=== PATIENT | male | born 1970 | race Caucasian/White ===

== ENCOUNTER 2016-12-07 15:43 | Inpatient (IN) | payer OTHER ==
[~2016-12-07] VITALS: Ht 180.3 cm; Wt 96.4 kg
[2016-12-07] MEDS ORDERED: ENOXAPARIN SODIUM 60 MG/0.6 ML PF SYRINGE SQ ONE (15:45)
[2016-12-07 15:56] LABS: ABG A-A DIFF O2 594.7 mmHg (10-20.0); ABG BASE EXCESS 1.6 mmol/L (-2.0-3.0); ABG HCO3 25.9 mmol/L (22.0-26.0); ABG OXYHEMOGLOBIN 94.1 % (94.0-100.0); ABG PCO2 40 mmHg (35-45); ABG PH 7.434 (7.35-7.450); TEMPERATURE, FAHRENHEIT, BG 99.9 FAHREN (96.0-98.6)
[2016-12-07 15:57] LABS: ALLEN TEST, BLOOD GAS Positive
[2016-12-07] MEDS ORDERED: ENOXAPARIN SODIUM 80 MG/0.8 ML PF SYRINGE SQ ONE (16:00)
[2016-12-07 16:03] LABS: BASOPHILS # (AUTO) 0.09 K/uL (0.00-0.20); BASOPHILS % (AUTO) 0.7 % (0.0-2.0); EOSINOPHILS # (AUTO) 0.67 K/uL (0.00-0.70); EOSINOPHILS % (AUTO) 5.48 % (1.0-6.0); HEMATOCRIT 43.4 % (41-53); HEMOGLOBIN 14.2 g/dL (13.5-17.5); LYMPHOCYTES # (AUTO) 2.7 K/uL (1.0-4.8); LYMPHOCYTES % (AUTO) 22.5 % (22.0-44.0); MEAN CORPUSCULAR HEMOGLOBIN 29.5 pg (26.0-34.0); MEAN CORPUSCULAR HGB CONC 32.7 G/dL (31.0-37.0); MEAN CORPUSCULAR VOLUME 90 fL (80-100); MONOCYTES # (AUTO) 0.9 K/uL (0.1-1.0); NEUTROPHILS # (AUTO) 7.8 K/uL (1.8-7.7); NEUTROPHILS % (AUTO) 64.3 % (40.0-70.0); PLATELET COUNT (AUTO) 593 K/uL (150-450); RED BLOOD CELL COUNT(AUTO) 4.82 MIL/uL (4.50-5.90); RED CELL DISTRIBUTION WIDTH 13.3 % (11.5-14.5); WHITE BLOOD COUNT (AUTO) 12.2 K/uL (4.5-11.0)
[2016-12-07] MEDS ORDERED: MORP15T PO (16:23)
[2016-12-07] MEDS ORDERED: SIMV-260 PO (16:23)
[2016-12-07] MEDS ORDERED: ONDANSETRON HCL 4 MG/2 ML VIAL IVP ONE (16:30)
[2016-12-07] MEDS ORDERED: HYDROmorphone 2 MG/ML SYRINGE IVP ONE (16:30)
[2016-12-07] MEDS ORDERED: IOVERSOL 350 MG/ML 100 ML VIAL ONE (16:33)
[2016-12-07] MEDS ORDERED: SODIUM CHLORIDE 0.9% 100 ML ONE (16:33)
[2016-12-07] MEDS ORDERED: IOVERSOL 350 MG/ML 50 ML VIAL ONE (16:33)
[2016-12-07 17:15] LABS: ANION GAP 10 mmol/L (8-16); CALCIUM, TOTAL 9.3 mg/dL (8.8-10.5); CARBON DIOXIDE 29 mmol/L (22-29); CHLORIDE 102 mmol/L (98-107); CREATININE 1.04 mg/dL (0.60-1.30); GLOMERULAR FILTR. RATE CALC > 60 mL/min (>60); POTASSIUM 4.3 mmol/L (3.5-5.1); SODIUM SERUM 141 mmol/L (136-145); UREA NITROGEN, BLOOD 17 mg/dL (7-18)
[2016-12-07 17:21] LABS: ALANINE AMINOTRANSFERASE 55 U/L (12-78); ALBUMIN 3.4 g/dL (3.4-5.0); ASPARTATE AMINOTRANSFERASE 26 U/L (15-37); CREATINE KINASE, TOTAL 64 U/L (39-308)
[2016-12-07] MEDS ORDERED: LORazepam 2 MG/ML VIAL ONE (17:33)
[2016-12-07 17:35] LABS: BILIRUBIN,TOTAL < 0.1 mg/dL (0.1-1.0)
[2016-12-07] MEDS ORDERED: LORazepam 2 MG/ML VIAL IVP ONE (17:45)
[2016-12-07] MEDS ORDERED: PIPERACILLIN/TAZO 3.375 GM/D5W 50 ML IV ONE (18:45)
[2016-12-07] MEDS ORDERED: 0.9% SODIUM CHLORIDE 10 ML SYRINGE IVP PRN (19:30)
[2016-12-07] MEDS ORDERED: ACETAMINOPHEN 325 MG TABLET PO PRN (19:30)
[2016-12-07] MEDS ORDERED: ONDANSETRON HCL 4 MG/2 ML VIAL IVP PRN (19:30)
[2016-12-07] MEDS ORDERED: HEPARIN SODIUM,PORCINE 5,000 UNITS/ML VIAL IVP PRN ×2 (21:15)
[2016-12-07] MEDS ORDERED: MORPHINE SULFATE 4 MG/ML SYRINGE IVP PRN (21:15)
[2016-12-07] MEDS ORDERED: HEPARIN SODIUM,PORCINE 5,000 UNITS/ML VIAL IVP ONE (21:15)
[2016-12-07 21:25] VITALS: BP 152/98
[2016-12-07] MEDS: HEPARIN SODIUM 25000 UNITS/D5W 250 ML IV PRN (21:43)
[2016-12-07 21:45] VITALS: BP 138/82
[2016-12-07 22:58] LABS: ORIG DRAW (USER) PTCARESTAF
[2016-12-08] VITALS (21 sets, daily range): BP systolic 105–150; BP diastolic 58–89
[2016-12-08] MEDS ORDERED: MAGNESIUM HYDROXIDE SUSPENSION 30 ML UDCUP PO PRN (00:15)
[2016-12-08] MEDS ORDERED: OxyCODONE HCL/ACETAMINOPHEN 5-325 MG TABLET PO PRN (00:15)
[2016-12-08] MEDS ORDERED: MORPHINE SULFATE 2 MG/ML SYRINGE IVP PRN (00:15)
[2016-12-08] MEDS ORDERED: MORPHINE SULFATE 15 MG IR TABLET PO PRN (00:15)
[2016-12-08] MEDS ORDERED: ONDANSETRON HCL 4 MG/2 ML VIAL IVP PRN (00:15)
[2016-12-08] MEDS ORDERED: 0.9% SODIUM CHLORIDE 10 ML SYRINGE IVP PRN (00:15)
[2016-12-08] MEDS: DOCUSATE SODIUM 100 MG CAPSULE PO SCH ×3 (00:35→20:58)
[2016-12-08] MEDS: OxyCODONE HCL/ACETAMINOPHEN 5-325 MG TABLET PO PRN ×4 (00:35→20:59)
[2016-12-08] MEDS: MORPHINE SULFATE 4 MG/ML SYRINGE IVP PRN ×5 (01:30→22:19)
[2016-12-08 05:25] LABS: BASOPHILS # (AUTO) 0.05 K/uL (0.00-0.20); BASOPHILS % (AUTO) 0.2 % (0.0-2.0); EOSINOPHILS # (AUTO) 0.01 K/uL (0.00-0.70); EOSINOPHILS % (AUTO) 0.04 % (1.0-6.0); HEMATOCRIT 42.3 % (41-53); HEMOGLOBIN 13.9 g/dL (13.5-17.5); LYMPHOCYTES # (AUTO) 0.9 K/uL (1.0-4.8); LYMPHOCYTES % (AUTO) 3.9 % (22.0-44.0); MEAN CORPUSCULAR HEMOGLOBIN 29.6 pg (26.0-34.0); MEAN CORPUSCULAR HGB CONC 32.9 G/dL (31.0-37.0); MEAN CORPUSCULAR VOLUME 90 fL (80-100); MONOCYTES # (AUTO) 1.2 K/uL (0.1-1.0); MONOCYTES % (AUTO) 5.4 % (2.0-9.0); PLATELET COUNT (AUTO) 533 K/uL (150-450); RED CELL DISTRIBUTION WIDTH 13.4 % (11.5-14.5); WHITE BLOOD COUNT (AUTO) 22.1 K/uL (4.5-11.0)
[2016-12-08 05:30] LABS: NEUTROPHILS % (AUTO) 90.4 % (40.0-70.0)
[2016-12-08 05:48] LABS: ALANINE AMINOTRANSFERASE 56 U/L (12-78); ALBUMIN 3.1 g/dL (3.4-5.0); ANION GAP 10 mmol/L (8-16); ASPARTATE AMINOTRANSFERASE 29 U/L (15-37); BILIRUBIN,TOTAL 0.4 mg/dL (0.1-1.0); CALCIUM, TOTAL 9.1 mg/dL (8.8-10.5); CARBON DIOXIDE 26 mmol/L (22-29); CHLORIDE 99 mmol/L (98-107); GLOMERULAR FILTR. RATE CALC > 60 mL/min (>60); POTASSIUM 4.3 mmol/L (3.5-5.1); SODIUM SERUM 135 mmol/L (136-145); TOTAL PROTEIN, SERUM 7.6 g/dL (6.4-8.2); UREA NITROGEN, BLOOD 15 mg/dL (7-18)
[2016-12-08] MEDS: PANTOPRAZOLE SODIUM 40 MG/VIAL IVP SCH (09:33)
[2016-12-08] MEDS: SIMVASTATIN 20 MG TABLET PO SCH (09:33)
[2016-12-08] MEDS: LEVOFLOXACIN 500 MG/D5% WATER 100 ML IV SCH (12:10)
[2016-12-08] MEDS: HEPARIN SODIUM 25000 UNITS/D5W 250 ML IV PRN (13:35)
[2016-12-08] MEDS ORDERED: SODIUM CHLORIDE 0.9% 250 ML IV ONE (14:24)
[2016-12-08] MEDS ORDERED: HYDROmorphone 2 MG/ML SYRINGE ONE (17:34)
[2016-12-08] MEDS ORDERED: HYDROmorphone 2 MG/ML SYRINGE IVP ONE (17:45)
[2016-12-08 21:14] LABS: CREATINE KINASE, TOTAL 27 U/L (39-308)
[2016-12-08 21:57] LABS: APPEARANCE,UNSPUN,BODY FLUID CLOUDY (CLEAR)
[2016-12-08 21:58] LABS: COLOR,BODY FLUID RED (LT YELLOW); OTHER CELLS,BODY FLUID 0; PH, BODY FLUID 8
[2016-12-09] VITALS (10 sets, daily range): BP systolic 108–124; BP diastolic 66–77
[2016-12-09] MEDS: MORPHINE SULFATE 4 MG/ML SYRINGE IVP PRN ×4 (04:27→20:46)
[2016-12-09] MEDS: HEPARIN SODIUM 25000 UNITS/D5W 250 ML IV PRN (04:51)
[2016-12-09 05:27] LABS: BASOPHILS % (AUTO) 0.3 % (0.0-2.0); EOSINOPHILS % (AUTO) 1.4 % (1.0-6.0); HEMATOCRIT 39.2 % (41-53); HEMOGLOBIN 12.7 g/dL (13.5-17.5); LYMPHOCYTES # (AUTO) 0.9 K/uL (1.0-4.8); LYMPHOCYTES % (AUTO) 4.6 % (22.0-44.0); MEAN CORPUSCULAR HEMOGLOBIN 29.3 pg (26.0-34.0); MEAN CORPUSCULAR HGB CONC 32.4 G/dL (31.0-37.0); MEAN CORPUSCULAR VOLUME 90 fL (80-100); MONOCYTES # (AUTO) 1.3 K/uL (0.1-1.0); MONOCYTES % (AUTO) 6.8 % (2.0-9.0); NEUTROPHILS # (AUTO) 16.2 K/uL (1.8-7.7); PLATELET COUNT (AUTO) 474 K/uL (150-450); RED BLOOD CELL COUNT(AUTO) 4.34 MIL/uL (4.50-5.90); RED CELL DISTRIBUTION WIDTH 12.9 % (11.5-14.5); WHITE BLOOD COUNT (AUTO) 18.7 K/uL (4.5-11.0)
[2016-12-09 05:31] LABS: NEUTROPHILS % (AUTO) 86.9 % (40.0-70.0)
[2016-12-09 05:49] LABS: ANION GAP 10 mmol/L (8-16); CARBON DIOXIDE 27 mmol/L (22-29); CHLORIDE 100 mmol/L (98-107); POTASSIUM 3.8 mmol/L (3.5-5.1); SODIUM SERUM 137 mmol/L (136-145)
[2016-12-09 05:50] LABS: CALCIUM, TOTAL 8.9 mg/dL (8.8-10.5); CREATINE KINASE, TOTAL 17 U/L (39-308); CREATININE 0.88 mg/dL (0.60-1.30); GLOMERULAR FILTR. RATE CALC > 60 mL/min (>60); PHOSPHORUS 2.6 mg/dL (2.5-4.9); THYROID STIMULATING HORMONE 0.21 uIU/mL (0.36-3.74); UREA NITROGEN, BLOOD 15 mg/dL (7-18)
[2016-12-09 07:05] LABS: B-TYPE NATRIURETIC PEPTIDE 5 pg/mL (0-100)
[2016-12-09] MEDS: DOCUSATE SODIUM 100 MG CAPSULE PO SCH ×2 (08:05→20:33)
[2016-12-09] MEDS: SIMVASTATIN 20 MG TABLET PO SCH (08:05)
[2016-12-09] MEDS: PANTOPRAZOLE SODIUM 40 MG/VIAL IVP SCH (08:05)
[2016-12-09] MEDS: OxyCODONE HCL/ACETAMINOPHEN 5-325 MG TABLET PO PRN ×2 (08:05→12:38)
[2016-12-09 09:39] LABS: ABG A-A DIFF O2 258.6 mmHg (10-20.0); ABG BASE EXCESS -1.6 mmol/L (-2.0-3.0); ABG HCO3 23.8 mmol/L (22.0-26.0); ABG OXYHEMOGLOBIN 94.7 % (94.0-100.0); ABG PCO2 33 mmHg (35-45); ABG PH 7.451 (7.35-7.450)
[2016-12-09 09:40] LABS: ALLEN TEST, BLOOD GAS POSITIVE
[2016-12-09] MEDS: LEVOFLOXACIN 500 MG/D5% WATER 100 ML IV SCH (11:00)
[2016-12-09] MEDS: APIXABAN 5 MG TABLET PO SCH ×2 (11:40→20:33)
[2016-12-09 12:49] LABS: CREATINE KINASE, TOTAL 17 U/L (39-308)
[2016-12-09 17:40] LABS: TOTAL PROTEIN,BODY FLUID,REF 5.6 g/dL
[2016-12-10] MEDS: MORPHINE SULFATE 4 MG/ML SYRINGE IVP PRN ×4 (03:12→22:23)
[2016-12-10 05:25] VITALS: BP 122/57
[2016-12-10] MEDS: OxyCODONE HCL/ACETAMINOPHEN 5-325 MG TABLET PO PRN ×2 (06:11→18:09)
[2016-12-10 07:36] VITALS: BP 106/69
[2016-12-10] MEDS: PANTOPRAZOLE SODIUM 40 MG/VIAL IVP SCH (08:35)
[2016-12-10] MEDS: DOCUSATE SODIUM 100 MG CAPSULE PO SCH ×2 (08:37→20:17)
[2016-12-10] MEDS: SIMVASTATIN 20 MG TABLET PO SCH (08:37)
[2016-12-10] MEDS: APIXABAN 5 MG TABLET PO SCH ×2 (08:37→20:17)
[2016-12-10] MEDS: LEVOFLOXACIN 500 MG/D5% WATER 100 ML IV SCH (11:00)
[2016-12-10] MEDS ORDERED: SODIUM CHLORIDE 0.9% 250 ML IV ONE (11:12)
[2016-12-10 11:57] VITALS: BP 121/68
[2016-12-10 15:17] VITALS: BP 129/77
[2016-12-10 19:48] VITALS: BP 115/68
[2016-12-10] MEDS: ACETAMINOPHEN 325 MG TABLET PO PRN (21:17)
[2016-12-10 23:44] VITALS: BP 126/77
[2016-12-11] MEDS: MORPHINE SULFATE 4 MG/ML SYRINGE IVP PRN ×2 (04:18→14:47)
[2016-12-11 04:49] VITALS: BP 132/83
[2016-12-11 06:10] LABS: BASOPHILS % (AUTO) 0.4 % (0.0-2.0); EOSINOPHILS % (AUTO) 0.8 % (1.0-6.0); HEMATOCRIT 37.3 % (41-53); HEMOGLOBIN 12.2 g/dL (13.5-17.5); LYMPHOCYTES # (AUTO) 0.8 K/uL (1.0-4.8); LYMPHOCYTES % (AUTO) 5.9 % (22.0-44.0); MEAN CORPUSCULAR HEMOGLOBIN 29.3 pg (26.0-34.0); MEAN CORPUSCULAR HGB CONC 32.6 G/dL (31.0-37.0); MEAN CORPUSCULAR VOLUME 90 fL (80-100); MONOCYTES # (AUTO) 0.7 K/uL (0.1-1.0); MONOCYTES % (AUTO) 5.2 % (2.0-9.0); NEUTROPHILS # (AUTO) 12.1 K/uL (1.8-7.7); PLATELET COUNT (AUTO) 510 K/uL (150-450); RED BLOOD CELL COUNT(AUTO) 4.16 MIL/uL (4.50-5.90); RED CELL DISTRIBUTION WIDTH 13.5 % (11.5-14.5); WHITE BLOOD COUNT (AUTO) 13.8 K/uL (4.5-11.0)
[2016-12-11 06:20] LABS: ANION GAP 13 mmol/L (8-16); CALCIUM, TOTAL 8.5 mg/dL (8.8-10.5); CARBON DIOXIDE 24 mmol/L (22-29); CHLORIDE 103 mmol/L (98-107); CREATININE 0.94 mg/dL (0.60-1.30); GLOMERULAR FILTR. RATE CALC > 60 mL/min (>60); POTASSIUM 3.3 mmol/L (3.5-5.1); SODIUM SERUM 140 mmol/L (136-145); UREA NITROGEN, BLOOD 14 mg/dL (7-18)
[2016-12-11 06:55] LABS: NEUTROPHILS % (AUTO) 87.7 % (40.0-70.0)
[2016-12-11 07:10] VITALS: BP 126/83
[2016-12-11] MEDS: PANTOPRAZOLE SODIUM 40 MG/VIAL IVP SCH (08:06)
[2016-12-11] MEDS: DOCUSATE SODIUM 100 MG CAPSULE PO SCH (08:06)
[2016-12-11] MEDS: APIXABAN 5 MG TABLET PO SCH (08:06)
[2016-12-11] MEDS: SIMVASTATIN 20 MG TABLET PO SCH (08:07)
[2016-12-11] MEDS: ACETAMINOPHEN 325 MG TABLET PO PRN ×2 (08:07→16:22)
[2016-12-11] MEDS: LEVOFLOXACIN 500 MG/D5% WATER 100 ML IV SCH (11:33)
[2016-12-11 11:45] VITALS: BP 121/80
[2016-12-11] MEDS ORDERED: LEVO500 PO (15:38)
[2016-12-11] MEDS ORDERED: APIX5TAB PO (15:39)
[2016-12-11] MEDS ORDERED: POTASSIUM CHL 10 MEQ/WATER 50 ML IV PRN (15:45)
[2016-12-11] MEDS ORDERED: POTASSIUM CHLORIDE 20 MEQ ER TABLET PO PRN (15:45)
[2016-12-11 16:07] VITALS: BP 122/80
[2016-12-11] MEDS ORDERED: RIVA15T PO (18:07)
[2016-12-11] MEDS ORDERED: RIVA20TA PO (18:08)
== END 2016-12-11 19:05 | disposition home or self-care (01) | DRG 720 ==
LOC: EMS 15:50 → ICU 19:00 → 5S 12-09 12:08
PROVIDERS: ADMIT Internal Medicine; ATTEND Internal Medicine
PROC: 0W9B3ZZ Drainage of Left Pleural Cavity, Percutaneous Approach (ICD-10-PCS; principal; 2016-12-09)
DX: A41.9 Sepsis, unspecified organism (principal); I26.99 Other pulmonary embolism without acute cor pulmonale; J96.01 Acute respiratory failure with hypoxia; J90 Pleural effusion, not elsewhere classified; J18.9 Pneumonia, unspecified organism; G89.29 Other chronic pain; E78.5 Hyperlipidemia, unspecified; F17.200 Nicotine dependence, unspecified, uncomplicated; E78.00 Pure hypercholesterolemia, unspecified; Z87.01 Personal history of pneumonia (recurrent); Z98.890 Other specified postprocedural states
CPT/HCPCS: 32555; 71275; 76942; 80307; 82271; 82465; 82805; 82945; 83615; 83735; 83986; 84100; 84157; 84443; 85379; 87015; 87070; 87081; 87101; 87205; 88108; 89051; 93005; 93306; 93970; 96365; 96372; 96375; 97161; 99291; C9113; J1170; J1644; J1650; J1956; J2060; J2270; J2405; J2543; J7050